=== PATIENT | male | born 1935 | race Caucasian/White ===

== ENCOUNTER 2019-09-20 06:26 | Day surgery (SDC) | payer MEDICARE, MEDICAID ==
[~2019-09-20] VITALS: Ht 152.4 cm; Wt 50.0 kg
[~2019-09-20 06:26] MED LIST: SODIUM CHLORIDE 0.9% 1,000 ML ONE
[2019-09-20] MEDS ORDERED: SODIUM CHLORIDE 0.9% 1,000 ML IV ONE (06:30)
[2019-09-20] MEDS ORDERED: MIDAZOLAM HCL 2 MG/2 ML VIAL ONE (07:20)
[2019-09-20] MEDS ORDERED: FentaNYL CITRATE-PF 100 MCG/2 ML VIAL ONE (07:20)
[2019-09-20 07:21] LABS: GLUCOMETER DEV NAME(LOC) SDS.; GLUCOSE,POINT OF CARE 117 MG/DL (70-110)
[2019-09-20] MEDS ORDERED: ESOM20CA31 PO (07:41)
[2019-09-20] MEDS ORDERED: LOSA-88 PO (07:41)
[2019-09-20] MEDS ORDERED: PIOG30TA10 PO (07:41)
[2019-09-20] MEDS ORDERED: LINA5TAB PO (07:41)
[2019-09-20] MEDS ORDERED: AMOX500C2 PO (07:41)
[2019-09-20] MEDS ORDERED: SIMV-259 PO (07:41)
[2019-09-20] MEDS ORDERED: METF-960 PO (07:41)
[2019-09-20] MEDS ORDERED: MethylPREDNISolone SOD SUCC 125 MG/2 ML VIAL ONE (08:44)
[2019-09-20] MEDS ORDERED: MethylPREDNISolone SOD SUCC 125 MG/2 ML VIAL IVP ONE (08:45)
[2019-09-20] MEDS ORDERED: ALBUTEROL SULFATE 2.5 MG/0.5 ML NEB SOLUTION NEB ONE (17:59)
[2019-09-20] MEDS ORDERED: LIDOCAINE 2% 30 ML JELLY ONE (17:59)
[2019-09-20] MEDS ORDERED: LIDOCAINE 4% 50 ML SOLUTION ONE (17:59)
[2019-09-20] MEDS ORDERED: BENZOCAINE 20% 50 MCG/SPRAY 57 GM ONE (17:59)
[2019-09-20] MEDS ORDERED: OXYGEN THERAPY IH SCH (20:00)
== END 2019-09-20 09:30 | disposition home or self-care (01) ==
LOC: SURGERY 06:26
PROVIDERS: ATTEND Internal Medicine Critical Care Medicine
DX: R05 Cough (principal); R06.2 Wheezing; R91.1 Solitary pulmonary nodule; J98.8 Other specified respiratory disorders; J34.89 Other specified disorders of nose and nasal sinuses; J38.4 Edema of larynx; B37.0 Candidal stomatitis; I10 Essential (primary) hypertension; E11.9 Type 2 diabetes mellitus without complications; E78.00 Pure hypercholesterolemia, unspecified; K21.9 Gastro-esophageal reflux disease without esophagitis; Z86.11 Personal history of tuberculosis; R19.00 Intra-abdominal and pelvic swelling, mass and lump, unspecified site
CPT/HCPCS: 31623; 31624; 71045; 82962; 87070; 87101; 87206; 87220; 88184; 88185; J2250; J2930; J3010; J7030; 87015; 87205; 88108; 88312